=== PATIENT | female | born 1990 | race Caucasian/White ===

== ENCOUNTER 2022-12-06 02:47 | Emergency (ER) | payer SELFPAY ==
[~2022-12-06] VITALS: Ht 162.6 cm; Wt 64.0 kg
[2022-12-06 02:50] VITALS: O2SAT 100
[2022-12-06] MEDS ORDERED: ACETAMINOPHEN 325MG TABLET PO ONE (03:30)
[2022-12-06] MEDS ORDERED: ACET-2708 MT (04:04)
[2022-12-06 05:40] LABS: HCG SCREEN NEGATIVE
[2022-12-06 06:30] VITALS: TEMP 98.4
[2022-12-06 07:46] VITALS: BP 105/51; PULSE 102; RESP 19
== END 2022-12-06 07:48 | disposition home or self-care (01) ==
LOC: ER 02:47
DX: M25.532 Pain in left wrist (principal); Y08.89XA Assault by other specified means, initial encounter; Y93.89 Activity, other specified; Y92.89 Other specified places as the place of occurrence of the external cause; Y99.8 Other external cause status
CPT/HCPCS: 73100; 84703; 99284